=== PATIENT | male | born 1945 | race Caucasian/White ===

== ENCOUNTER 2021-06-22 10:55 | Emergency (ER) | payer OTHER, MEDICARE ==
[~2021-06-22] VITALS: Ht 175.3 cm; Wt 80.9 kg
[2021-06-22] MEDS ORDERED: CASIRIVIMAB/IMDEVIMAB inject. 10 ML in normal saline 100ml IV soln 100 ML IV ONE (13:00)
[2021-06-22 15:23] VITALS: BP 154/78
== END 2021-06-22 15:25 | disposition home or self-care (01) ==
LOC: ER 10:56
DX: U07.1 COVID-19 (principal); R50.9 Fever, unspecified; R11.0 Nausea; I10 Essential (primary) hypertension; J44.9 Chronic obstructive pulmonary disease, unspecified; E11.9 Type 2 diabetes mellitus without complications; F17.200 Nicotine dependence, unspecified, uncomplicated
CPT/HCPCS: 99283; M0243; Q0244

== ENCOUNTER 2021-06-25 09:23 | Inpatient (IN) | payer OTHER, MEDICARE ==
[~2021-06-25] VITALS: Ht 175.3 cm; Wt 81.0 kg
[2021-06-25 10:22] LABS: BASOPHILS % (AUTO) 0.1 % (0-1); EOSINOPHILS % (AUTO) 0.1 % (0-6); HEMATOCRIT 45.6 % (42.0-52.0); HEMOGLOBIN 15.2 g/dl (14.0-17.9); LYMPHOCYTES # (AUTO) 0.9 X10'3 (1.1-4.8); LYMPHOCYTES % (AUTO) 16.1 % (21-51); MEAN CORPUSCULAR HEMOGLOBIN 29.9 PG (27.0-31.0); MEAN CORPUSCULAR HGB CONC 33.4 g/dL (33.0-36.5); MEAN CORPUSCULAR VOLUME 89.5 FL (78-98); MEAN PLATELET VOLUME 8.6 FL (7.4-10.4); MONOCYTES # (AUTO) 0.4 X10'3 (0-0.9); MONOCYTES % (AUTO) 7.5 % (2-12); NEUTROPHILS # (AUTO) 4.1 X10'3 (1.8-7.7); NEUTROPHILS % (AUTO) 76.2 % (42-75); PLATELET COUNT 214 X10'3 (140-440); RED BLOOD COUNT 5.09 X10'6 (4.70-6.10); WHITE BLOOD COUNT 5.3 X10'3 (4.5-11.0)
[2021-06-25 10:38] LABS: ALANINE AMINOTRANSFERASE 47 U/L (12-78); ALBUMIN/GLOBULIN RATIO 0.8 (1.1-1.5); ALKALINE PHOSPHATASE 91 IU/L (46-116); ANION GAP 6 (8-16); ASPARTATE AMINO TRANSFERASE 44 U/L (10-37); BILIRUBIN,TOTAL 0.8 MG/DL (0.1-1.0); BLOOD UREA NITROGEN 19 MG/DL (7-18); BUN/CREATININE RATIO 15.7 (5.4-32.0); CALCIUM 8.2 MG/DL (8.5-10.1); CHLORIDE 100 MMOL/L (99-107); CREATININE 1.21 MG/DL (0.60-1.10); GLUCOSE 124 MG/DL (70-104); POTASSIUM 3.7 MMOL/L (3.5-5.1); SODIUM 129 MMOL/L (135-145); TOTAL CARBON DIOXIDE 23.5 MMOL/L (24-32); TOTAL PROTEIN 6.8 G/DL (6.4-8.2); eGFR 59 ML/MIN
[2021-06-25] MEDS ORDERED: dexamethasone sod phosphate 10mg/ml inj IV STA (10:43)
[2021-06-25] MEDS ORDERED: acetaminophen 325mg tablet PO PRN (10:55)
[2021-06-25] MEDS ORDERED: mag hydrox/Alum hydrox/simeth 30ml oral suspension PO PRN (10:55)
[2021-06-25] MEDS ORDERED: magnesium hydroxide 30ml (MOM) UD suspension PO PRN (10:55)
[2021-06-25] MEDS ORDERED: ondansetron/PF 4mg/2ml inj IV PRN (10:55)
[2021-06-25 11:03] LABS: D-DIMER 0.42 MG/L FEU (0-0.50)
[2021-06-25] MEDS: normal saline 1000ml 1,000 ML IV SCH (11:47)
[2021-06-25] MEDS ORDERED: iohexol 350MG/ML 100ml bottle IV ONE (11:59)
[2021-06-25] MEDS ORDERED: LISI10TA27 PO (13:31)
[2021-06-25] MEDS ORDERED: ALBU8.5H17 INH (13:31)
[2021-06-25] MEDS ORDERED: LOVA40TA2 PO (13:31)
[2021-06-25] MEDS ORDERED: MOME13HF3 IH (13:31)
[2021-06-25] MEDS ORDERED: CHOL200012 PO (13:31)
[2021-06-25] MEDS ORDERED: TIOT4MIS3 IH (13:31)
[2021-06-25] MEDS ORDERED: ALBUTEROL INHALER 1 PUFF/90 MCG INHALER IH PRN (13:40)
[2021-06-25] MEDS ORDERED: ipratropium/albuterol 3ml nebule IH PRN (14:00)
[2021-06-25 18:00] VITALS: BP 147/78
--- NOTE | 2021-06-25 19:00 | NUR ---
Pt came up from ER on 5L O2 sats 88-92%.
[2021-06-25] MEDS ORDERED: budesonide 0.5mg/2ml UD nebule IH SCH (20:00)
[2021-06-25] MEDS: docusate sod 100mg capsule PO SCH (20:00)
[2021-06-25 22:00] VITALS: BP 125/77
[2021-06-25] MEDS: dexamethasone 4mg/ml inj IV SCH (22:50)
[2021-06-25] MEDS: enoxaparin 40mg/0.4ml syringe SUBCUT SCH (22:52)
--- NOTE | 2021-06-25 23:36 | NUR ---
Pt states he is going to have a CT scan of his thyroid on 07/01 and follow up with his PCP. Has been gaining wt and has trouble breathing at times after having a cyst removal surgery in the neck.
[2021-06-26 02:00] VITALS: BP 125/75
[2021-06-26 06:00] VITALS: BP 145/81
--- NOTE | 2021-06-26 06:10 | NUR ---
RECEIVED REPORT FROM DELANEY SOLORZANO
[2021-06-26] MEDS: lisinopril 10 MG tablet PO SCH (07:30)
[2021-06-26] MEDS: dexamethasone 4mg/ml inj IV SCH ×2 (07:33→20:55)
[2021-06-26] MEDS: enoxaparin 40mg/0.4ml syringe SUBCUT SCH ×2 (07:36→20:54)
[2021-06-26] MEDS: docusate sod 100mg capsule PO SCH ×2 (07:40→20:00)
[2021-06-26] MEDS: normal saline 1000ml 1,000 ML IV SCH ×3 (07:41→21:00)
[2021-06-26] MEDS: atorvastatin 10mg tablet PO SCH (07:43)
[2021-06-26] MEDS: cholecalciferol (vitamin D3) 1,000 unit (25mcg) tablet PO SCH (07:44)
[2021-06-26 08:14] LABS: BASOPHILS % (AUTO) 0.2 % (0-1); EOSINOPHILS % (AUTO) 0 % (0-6); HEMATOCRIT 45.1 % (42.0-52.0); HEMOGLOBIN 14.9 g/dl (14.0-17.9); LYMPHOCYTES # (AUTO) 0.8 X10'3 (1.1-4.8); LYMPHOCYTES % (AUTO) 16.6 % (21-51); MEAN CORPUSCULAR HGB CONC 33.1 g/dL (33.0-36.5); MEAN CORPUSCULAR VOLUME 90.6 FL (78-98); MEAN PLATELET VOLUME 8.8 FL (7.4-10.4); MONOCYTES # (AUTO) 0.2 X10'3 (0-0.9); MONOCYTES % (AUTO) 4.8 % (2-12); NEUTROPHILS # (AUTO) 3.6 X10'3 (1.8-7.7); NEUTROPHILS % (AUTO) 78.4 % (42-75); PLATELET COUNT 246 X10'3 (140-440); RED BLOOD COUNT 4.98 X10'6 (4.70-6.10); WHITE BLOOD COUNT 4.6 X10'3 (4.5-11.0)
[2021-06-26 08:37] LABS: ALBUMIN 2.6 G/DL (3.4-5.0); ANION GAP 12 (8-16); BLOOD UREA NITROGEN 21 MG/DL (7-18); BUN/CREATININE RATIO 17.9 (5.4-32.0); CHLORIDE 107 MMOL/L (99-107); CREATININE 1.17 MG/DL (0.60-1.10); GLUCOSE 173 MG/DL (70-104); POTASSIUM 3.9 MMOL/L (3.5-5.1); SODIUM 142 MMOL/L (135-145); TOTAL CARBON DIOXIDE 23.3 MMOL/L (24-32); eGFR 61 ML/MIN
[2021-06-26] MEDS ORDERED: REMDESIVIR INJ 200 MG in normal saline 100ml IV soln 60 ML IV ONE (08:40)
[2021-06-26 10:00] VITALS: BP 154/79
[2021-06-26] MEDS ORDERED: pneumococcal 23-VAL P-sac vacc 25 mcg/0.5ml vial IMVAC ONE (10:00)
[2021-06-26] MEDS: STIOLTO RESPIMAT IH SCH (12:54)
[2021-06-26 14:00] VITALS: BP 134/66
[2021-06-26 17:32] LABS: HEMOGLOBIN A1C 7.2 % (4.5-6.2)
[2021-06-26 18:00] VITALS: BP 154/79
--- NOTE | 2021-06-26 18:09 | NUR ---
GAVE REPORT TO BO Arizmendi RN
[2021-06-26] MEDS: MOMETASONE IH SCH (20:53)
[2021-06-26 22:00] VITALS: BP 142/74
[2021-06-27 06:30] VITALS: BP 153/83
--- NOTE | 2021-06-27 06:39 | NUR ---
Problems reprioritized. Patient report given, questions answered & plan of care reviewed with DELANEY Steven.
--- NOTE | 2021-06-27 06:45 | NUR ---
Patient in room [facility] 4012. I have received report from edgardo holden and had the opportunity to ask questions and assume patient care.
[2021-06-27] MEDS: docusate sod 100mg capsule PO SCH ×2 (08:00→20:00)
[2021-06-27] MEDS ORDERED: STIOLTO RESPIMAT IH SCH (08:00)
[2021-06-27] MEDS: dexamethasone 4mg/ml inj IV SCH ×2 (08:15→21:50)
[2021-06-27] MEDS: enoxaparin 40mg/0.4ml syringe SUBCUT SCH ×2 (08:16→21:51)
[2021-06-27] MEDS: REMDESIVIR INJ 100 MG in normal saline 100ml IV soln 80 ML IV SCH (08:16)
[2021-06-27] MEDS: cholecalciferol (vitamin D3) 1,000 unit (25mcg) tablet PO SCH (08:16)
[2021-06-27] MEDS: lisinopril 10 MG tablet PO SCH (08:16)
[2021-06-27] MEDS: atorvastatin 10mg tablet PO SCH (08:18)
[2021-06-27] MEDS: MOMETASONE IH SCH ×2 (08:27→20:00)
[2021-06-27] MEDS: STIOLTO RESPIMAT IH SCH (08:28)
[2021-06-27 08:59] LABS: ALBUMIN 2.7 G/DL (3.4-5.0); ANION GAP 13 (8-16); BLOOD UREA NITROGEN 30 MG/DL (7-18); BUN/CREATININE RATIO 24.2 (5.4-32.0); CALCIUM 8.4 MG/DL (8.5-10.1); CHLORIDE 110 MMOL/L (99-107); CREATININE 1.24 MG/DL (0.60-1.10); GLUCOSE 189 MG/DL (70-104); POTASSIUM 4.1 MMOL/L (3.5-5.1); SODIUM 144 MMOL/L (135-145); TOTAL CARBON DIOXIDE 20.7 MMOL/L (24-32); eGFR 57 ML/MIN
[2021-06-27 09:03] LABS: BASOPHILS % (AUTO) 0 % (0-1); EOSINOPHILS % (AUTO) 0 % (0-6); HEMATOCRIT 45.8 % (42.0-52.0); LYMPHOCYTES # (AUTO) 0.9 X10'3 (1.1-4.8); LYMPHOCYTES % (AUTO) 9.3 % (21-51); MEAN CORPUSCULAR HEMOGLOBIN 29.9 PG (27.0-31.0); MEAN CORPUSCULAR HGB CONC 32.7 g/dL (33.0-36.5); MEAN CORPUSCULAR VOLUME 91.4 FL (78-98); MEAN PLATELET VOLUME 8.6 FL (7.4-10.4); MONOCYTES # (AUTO) 0.4 X10'3 (0-0.9); MONOCYTES % (AUTO) 4.2 % (2-12); NEUTROPHILS # (AUTO) 7.9 X10'3 (1.8-7.7); NEUTROPHILS % (AUTO) 86.5 % (42-75); PLATELET COUNT 319 X10'3 (140-440); RED BLOOD COUNT 5.01 X10'6 (4.70-6.10); WHITE BLOOD COUNT 9.1 X10'3 (4.5-11.0)
--- NOTE | 2021-06-27 09:19 | NUR ---
DM Consult: Pt hx T2DM A1C 7.2 admit DX COVID-19 PNA. DM ed deferred at this time until more appropriate. Addendum: 06/27/21 at [address] Amended: Links added.
[2021-06-27 10:42] VITALS: BP 168/89
[2021-06-27] MEDS ORDERED: dextrose 50%-water 50ml dispensing syringe IV PRN ×2 (11:05)
[2021-06-27] MEDS ORDERED: MESSAGE TO PHARMACY PO ONE (11:05)
[2021-06-27] MEDS ORDERED: insulin Lispro (HumaLOG) vial - multi-dose SQ SCH (11:05)
[2021-06-27] MEDS ORDERED: glucagon, human recombinant 1mg kit SUBCUT PRN (11:05)
[2021-06-27] MEDS ORDERED: dextrose ORAL solution 15 GM/59 ML bottle PO PRN ×2 (11:05)
--- NOTE | 2021-06-27 13:28 | NUR ---
PT REFUSING INSULIN, EDUCATED PT ON RISKS AND BENEFITS. PT STATES "NO INSULIN, AND YOU CANT MAKE ME TAKE IT"
[2021-06-27 14:53] VITALS: BP 171/87
[2021-06-27] MEDS: ascorbic acid 500mg tablet PO SCH (17:36)
[2021-06-27 18:00] VITALS: BP 174/88
--- NOTE | 2021-06-27 18:13 | NUR ---
PAGED DR BENITEZ RE: PAGER ID: [phone] MESSAGE: OZ RIOS. PT REFUSING INSULIN. BP ELEVATED 174/88. O/N CONNER [id number]
[2021-06-27] MEDS ORDERED: hydrALAZINE 20mg/ml inj. IV PRN (18:15)
--- NOTE | 2021-06-27 18:22 | NUR ---
Problems reprioritized. Patient report given, questions answered & plan of care reviewed with BO BALTAZAR.
--- NOTE | 2021-06-27 19:30 | NUR ---
Patient in room [facility] 4012. I have received report from Noelle BALTAZAR and had the opportunity to ask questions and assume patient care.
[2021-06-27] MEDS: insulin glargine (Lantus) pen - multi-dose SQ SCH (21:00)
--- NOTE | 2021-06-27 21:00 | NUR ---
pt refused to have 2100 blood sugar check and is refusing any insulin. He states he will check his sugar in am. He takes metformin at home and does not want insulin
[2021-06-27] MEDS: zinc sulfate 220mg capsule PO SCH (21:51)
[2021-06-27 22:00] VITALS: BP 180/88
--- NOTE | 2021-06-28 06:25 | NUR ---
Problems reprioritized. Patient report given, questions answered & plan of care reviewed with Tenisha BALTAZAR.
--- NOTE | 2021-06-28 06:40 | NUR ---
Patient in room [facility] 4012. I have received report from karrie holden and had the opportunity to ask questions and assume patient care.
[2021-06-28 06:56] VITALS: BP 170/83
[2021-06-28] MEDS: STIOLTO RESPIMAT IH SCH (07:19)
[2021-06-28] MEDS: MOMETASONE IH SCH ×2 (07:19→19:59)
[2021-06-28] MEDS: cholecalciferol (vitamin D3) 1,000 unit (25mcg) tablet PO SCH (07:21)
[2021-06-28] MEDS: lisinopril 10 MG tablet PO SCH (07:22)
[2021-06-28] MEDS: dexamethasone 4mg/ml inj IV SCH ×2 (07:23→19:50)
[2021-06-28] MEDS: REMDESIVIR INJ 100 MG in normal saline 100ml IV soln 80 ML IV SCH (07:23)
[2021-06-28] MEDS: enoxaparin 40mg/0.4ml syringe SUBCUT SCH ×2 (07:24→19:50)
[2021-06-28] MEDS: zinc sulfate 220mg capsule PO SCH ×2 (07:27→20:10)
[2021-06-28] MEDS: ascorbic acid 500mg tablet PO SCH ×2 (07:28→17:36)
[2021-06-28] MEDS: atorvastatin 10mg tablet PO SCH (07:39)
[2021-06-28] MEDS: docusate sod 100mg capsule PO SCH ×2 (07:39→19:50)
[2021-06-28 07:42] LABS: BASOPHILS % (AUTO) 0.1 % (0-1); EOSINOPHILS % (AUTO) 0 % (0-6); HEMATOCRIT 43.8 % (42.0-52.0); HEMOGLOBIN 14.6 g/dl (14.0-17.9); LYMPHOCYTES # (AUTO) 0.8 X10'3 (1.1-4.8); LYMPHOCYTES % (AUTO) 8.8 % (21-51); MEAN CORPUSCULAR HEMOGLOBIN 30.4 PG (27.0-31.0); MEAN CORPUSCULAR HGB CONC 33.4 g/dL (33.0-36.5); MEAN CORPUSCULAR VOLUME 91.1 FL (78-98); MEAN PLATELET VOLUME 8.3 FL (7.4-10.4); MONOCYTES # (AUTO) 0.4 X10'3 (0-0.9); MONOCYTES % (AUTO) 5.1 % (2-12); NEUTROPHILS # (AUTO) 7.4 X10'3 (1.8-7.7); PLATELET COUNT 346 X10'3 (140-440); RED BLOOD COUNT 4.81 X10'6 (4.70-6.10); RED CELL DISTRIBUTION WIDTH 15.4 % (11.5-14.5); WHITE BLOOD COUNT 8.6 X10'3 (4.5-11.0)
[2021-06-28 07:55] LABS: ALBUMIN 2.8 G/DL (3.4-5.0); ANION GAP 10 (8-16); BLOOD UREA NITROGEN 30 MG/DL (7-18); BUN/CREATININE RATIO 26.5 (5.4-32.0); CALCIUM 8.6 MG/DL (8.5-10.1); CHLORIDE 108 MMOL/L (99-107); CREATININE 1.13 MG/DL (0.60-1.10); GLUCOSE 175 MG/DL (70-104); POTASSIUM 4.1 MMOL/L (3.5-5.1); SODIUM 141 MMOL/L (135-145); TOTAL CARBON DIOXIDE 22.7 MMOL/L (24-32); eGFR 64 ML/MIN
[2021-06-28 10:00] VITALS: BP 172/95
[2021-06-28 14:00] VITALS: BP 152/74
[2021-06-28 14:08] LABS: D-DIMER 0.39 MG/L FEU (0-0.50)
[2021-06-28 18:00] VITALS: BP 164/99
--- NOTE | 2021-06-28 18:19 | NUR ---
Patient in room [facility] 4012. I have received report from DELANEY Steven and had the opportunity to ask questions and assume patient care.
--- NOTE | 2021-06-28 18:33 | NUR ---
Problems reprioritized. Patient report given, questions answered & plan of care reviewed with ARACELIS BALTAZAR.
[2021-06-28] MEDS: insulin glargine (Lantus) pen - multi-dose SQ SCH (21:00)
[2021-06-28 22:00] VITALS: BP 180/90
[2021-06-28 22:21] VITALS: BP 141/75
[2021-06-29 02:00] VITALS: BP 155/87
[2021-06-29 06:00] VITALS: BP 152/74
--- NOTE | 2021-06-29 06:30 | NUR ---
Problems reprioritized. Patient report given, questions answered & plan of care reviewed with DELANEY Harrison.
[2021-06-29] MEDS: ascorbic acid 500mg tablet PO SCH ×2 (07:50→18:16)
[2021-06-29] MEDS: docusate sod 100mg capsule PO SCH ×2 (07:50→19:02)
[2021-06-29] MEDS: lisinopril 10 MG tablet PO SCH (07:50)
[2021-06-29] MEDS: cholecalciferol (vitamin D3) 1,000 unit (25mcg) tablet PO SCH (07:50)
[2021-06-29] MEDS: atorvastatin 10mg tablet PO SCH (07:50)
[2021-06-29] MEDS: dexamethasone 4mg/ml inj IV SCH ×2 (07:52→19:13)
[2021-06-29] MEDS: enoxaparin 40mg/0.4ml syringe SUBCUT SCH ×2 (07:53→19:14)
[2021-06-29] MEDS: MOMETASONE IH SCH ×2 (08:00→19:12)
[2021-06-29] MEDS: STIOLTO RESPIMAT IH SCH (08:00)
[2021-06-29] MEDS: REMDESIVIR INJ 100 MG in normal saline 100ml IV soln 80 ML IV SCH (08:13)
[2021-06-29] MEDS: zinc sulfate 220mg capsule PO SCH ×2 (08:13→19:13)
[2021-06-29 08:20] LABS: BASOPHILS % (AUTO) 0 % (0-1); EOSINOPHILS % (AUTO) 0 % (0-6); HEMATOCRIT 44.8 % (42.0-52.0); HEMOGLOBIN 15.1 g/dl (14.0-17.9); LYMPHOCYTES # (AUTO) 0.8 X10'3 (1.1-4.8); MEAN CORPUSCULAR HEMOGLOBIN 30.4 PG (27.0-31.0); MEAN CORPUSCULAR HGB CONC 33.7 g/dL (33.0-36.5); MEAN CORPUSCULAR VOLUME 90.1 FL (78-98); MONOCYTES # (AUTO) 0.6 X10'3 (0-0.9); MONOCYTES % (AUTO) 7.7 % (2-12); NEUTROPHILS # (AUTO) 6.5 X10'3 (1.8-7.7); NEUTROPHILS % (AUTO) 82.3 % (42-75); PLATELET COUNT 385 X10'3 (140-440); RED BLOOD COUNT 4.97 X10'6 (4.70-6.10); RED CELL DISTRIBUTION WIDTH 15.1 % (11.5-14.5); WHITE BLOOD COUNT 7.9 X10'3 (4.5-11.0)
[2021-06-29 08:36] LABS: D-DIMER 0.48 MG/L FEU (0-0.50)
[2021-06-29 08:49] LABS: ALBUMIN 2.9 G/DL (3.4-5.0); ANION GAP 9 (8-16); BLOOD UREA NITROGEN 30 MG/DL (7-18); BUN/CREATININE RATIO 29.7 (5.4-32.0); C-REACTIVE PROTEIN 1.35 MG/DL (0.0-0.5); CALCIUM 8.8 MG/DL (8.5-10.1); CHLORIDE 107 MMOL/L (99-107); CREATININE 1.01 MG/DL (0.60-1.10); GLUCOSE 158 MG/DL (70-104); POTASSIUM 4.3 MMOL/L (3.5-5.1); SODIUM 139 MMOL/L (135-145); eGFR 72 ML/MIN
[2021-06-29 10:00] VITALS: BP 145/82
--- NOTE | 2021-06-29 10:15 | NUR ---
Blood sugar was 170mg/dl at 0800, patient refused insulin.
[2021-06-29 14:00] VITALS: BP 154/87
[2021-06-29 18:00] VITALS: BP 171/93
--- NOTE | 2021-06-29 19:39 | NUR ---
pt got oob on his own to use the bathroom and he was not wearing his oxygen even though there is extension tubing hooked up to his oxygen. I educated him on needing to wear his oxygen and he disregarded my instructions, I applied the NRB to help him recover since his oxygen saturation was 86% on the 15 liters HF after getting back to bed. Applied the bedside pulse ox on his finger at this time.
[2021-06-29] MEDS: insulin glargine (Lantus) pen - multi-dose SQ SCH (21:00)
[2021-06-29 22:00] VITALS: BP 163/89
[2021-06-30 06:00] VITALS: BP 138/90
--- NOTE | 2021-06-30 06:14 | NUR ---
Pt handoff to Deborah BALTAZAR
--- NOTE | 2021-06-30 06:42 | NUR ---
Patient in room [facility]TH[facility] 4012B. I have received report from DELANEY Rhoaeds and had the opportunity to ask questions and assume patient care.
[2021-06-30] MEDS: dexamethasone 4mg/ml inj IV SCH ×2 (07:31→19:45)
[2021-06-30] MEDS: docusate sod 100mg capsule PO SCH ×2 (07:31→19:52)
[2021-06-30] MEDS: REMDESIVIR INJ 100 MG in normal saline 100ml IV soln 80 ML IV SCH (07:31)
[2021-06-30] MEDS: atorvastatin 10mg tablet PO SCH (07:31)
[2021-06-30] MEDS: zinc sulfate 220mg capsule PO SCH ×2 (07:32→19:45)
[2021-06-30] MEDS: cholecalciferol (vitamin D3) 1,000 unit (25mcg) tablet PO SCH (07:32)
[2021-06-30] MEDS: enoxaparin 40mg/0.4ml syringe SUBCUT SCH ×2 (07:33→19:46)
[2021-06-30] MEDS: lisinopril 10 MG tablet PO SCH (07:33)
[2021-06-30] MEDS: ascorbic acid 500mg tablet PO SCH ×2 (07:36→18:00)
[2021-06-30 07:42] LABS: BASOPHILS % (AUTO) 0.1 % (0-1); EOSINOPHILS % (AUTO) 0 % (0-6); HEMATOCRIT 44.5 % (42.0-52.0); HEMOGLOBIN 15.2 g/dl (14.0-17.9); LYMPHOCYTES # (AUTO) 0.9 X10'3 (1.1-4.8); MEAN CORPUSCULAR HEMOGLOBIN 30.4 PG (27.0-31.0); MEAN CORPUSCULAR HGB CONC 34.2 g/dL (33.0-36.5); MEAN CORPUSCULAR VOLUME 88.7 FL (78-98); MEAN PLATELET VOLUME 8.1 FL (7.4-10.4); MONOCYTES # (AUTO) 0.5 X10'3 (0-0.9); MONOCYTES % (AUTO) 6.9 % (2-12); NEUTROPHILS # (AUTO) 6.4 X10'3 (1.8-7.7); PLATELET COUNT 410 X10'3 (140-440); RED BLOOD COUNT 5.01 X10'6 (4.70-6.10); RED CELL DISTRIBUTION WIDTH 15.2 % (11.5-14.5); WHITE BLOOD COUNT 7.9 X10'3 (4.5-11.0)
[2021-06-30] MEDS: MOMETASONE IH SCH ×2 (07:48→19:43)
[2021-06-30] MEDS: STIOLTO RESPIMAT IH SCH (07:48)
[2021-06-30 08:00] LABS: ALBUMIN 2.8 G/DL (3.4-5.0); ANION GAP 11 (8-16); BLOOD UREA NITROGEN 28 MG/DL (7-18); BUN/CREATININE RATIO 28.9 (5.4-32.0); C-REACTIVE PROTEIN 0.86 MG/DL (0.0-0.5); CALCIUM 8.6 MG/DL (8.5-10.1); CHLORIDE 107 MMOL/L (99-107); CREATININE 0.97 MG/DL (0.60-1.10); GLUCOSE 154 MG/DL (70-104); POTASSIUM 4.3 MMOL/L (3.5-5.1); SODIUM 142 MMOL/L (135-145); TOTAL CARBON DIOXIDE 24.5 MMOL/L (24-32); eGFR 76 ML/MIN
[2021-06-30 08:02] LABS: D-DIMER 0.41 MG/L FEU (0-0.50)
--- NOTE | 2021-06-30 09:12 | NUR ---
Initial: Pt admitted w/ SOB and Covid per EMR. Pt noted to currently have 14L oxygen requirement. Pt still able to eat well, mostly 75-100% of CCHO/Heart Healthy diet meeting needs. No N/V/D noted, LBM 06/29. No nutrition intervention implemented at this time, will continue to monitor. DM ed deferred at this time until more appropriate. Recs: 1. Continue CCHO/Heart Healthy diet as tolerated; if PO intake declines consider liberalizing diet 2. Bowel care per rx 3. Scaled wt this admit, weekly wts thereafter Addendum: 06/30/21 at [address] Amended: Links added.
[2021-06-30 10:00] VITALS: BP 163/82
--- NOTE | 2021-06-30 18:08 | NUR ---
Problems reprioritized. Patient report given, questions answered & plan of care reviewed with DELANEY BAIRD.
[2021-06-30] MEDS: insulin glargine (Lantus) pen - multi-dose SQ SCH (19:43)
[2021-06-30 21:00] VITALS: BP 139/70
[2021-07-01 02:00] VITALS: BP 140/81
[2021-07-01 06:00] VITALS: BP 142/74
--- NOTE | 2021-07-01 06:10 | NUR ---
Handoff report given to Deborah BALTAZAR
--- NOTE | 2021-07-01 06:36 | NUR ---
Patient in room [facility]TH[facility] 4012B. I have received report from DELANEY Rhoades and had the opportunity to ask questions and assume patient care.
[2021-07-01 08:40] LABS: D-DIMER 0.37 MG/L FEU (0-0.50)
[2021-07-01] MEDS: dexamethasone 4mg/ml inj IV SCH (09:35)
[2021-07-01] MEDS: atorvastatin 10mg tablet PO SCH (09:35)
[2021-07-01] MEDS: cholecalciferol (vitamin D3) 1,000 unit (25mcg) tablet PO SCH (09:36)
[2021-07-01] MEDS: zinc sulfate 220mg capsule PO SCH (09:37)
[2021-07-01] MEDS: ascorbic acid 500mg tablet PO SCH ×2 (09:37→17:51)
[2021-07-01] MEDS: lisinopril 10 MG tablet PO SCH (09:37)
[2021-07-01] MEDS: enoxaparin 40mg/0.4ml syringe SUBCUT SCH (09:41)
[2021-07-01] MEDS: docusate sod 100mg capsule PO SCH (09:42)
[2021-07-01] MEDS: STIOLTO RESPIMAT IH SCH (09:42)
[2021-07-01] MEDS: MOMETASONE IH SCH (09:42)
[2021-07-01 10:00] VITALS: BP 125/77
[2021-07-01] MEDS ORDERED: ASPI81TA52 PO (12:00)
[2021-07-01] MEDS ORDERED: DEC4T PO (12:00)
--- NOTE | 2021-07-01 13:20 | NUR ---
O2 Sat at rest on room air:_85__% If below 89%: Recovery O2 Sat at rest on _4__LPM:__93_%: via___nasal canula__(mask/nasal cannula, etc..) No further documentation is necessary. If O2 Sat did not drop below 89% on room air,ambulate patient on room air. O2 Sat while ambulating on room air:___% Recovery O2 Sat while ambulating on ___LPM:___% No further documentation is necessary. If patient does not drop below 89% while ambulating, he/she does not qualify for home O2.
[2021-07-01 14:00] VITALS: BP 132/77
--- NOTE | 2021-07-01 18:13 | NUR ---
DC INSTRUCTIONS GIVEN, QUESTIONS ANSWERED. O2 HERE AT BEDSIDE. IV REMOVED, NO COMPLICATION, BANDAGE APPLIED. PERSONAL BELONGINGS GATHERED. PT DRESSED SELF. RIDE TO BE HERE AT 1900. WILL HAND OFF TO MARY RN.
--- NOTE | 2021-07-01 18:39 | NUR ---
Problems reprioritized. Patient report given, questions answered & plan of care reviewed with DELANEY BAIRD.
[2021-07-01] MEDS ORDERED: dexamethasone 4mg/ml inj IV SCH (20:00)
== END 2021-07-01 18:40 | disposition home or self-care (01) | DRG 177 ==
LOC: ER 09:23 → ED HOLD 10:58 → ORTHO 4S 19:00
PROVIDERS: ADMIT Family Medicine; ATTEND Family Medicine
PROC: B32T1ZZ Computerized Tomography (CT Scan) of Left Pulmonary Artery using Low Osmolar Contrast (ICD-10-PCS; 2021-06-25)
PROC: B3201ZZ Computerized Tomography (CT Scan) of Thoracic Aorta using Low Osmolar Contrast (ICD-10-PCS; 2021-06-25)
PROC: B32S1ZZ Computerized Tomography (CT Scan) of Right Pulmonary Artery using Low Osmolar Contrast (ICD-10-PCS; 2021-06-25)
PROC: XW033E5 Introduction of Remdesivir Anti-infective into Peripheral Vein, Percutaneous Approach, New Technology Group 5 (ICD-10-PCS; principal; 2021-06-26)
PROC: 5A0955A Assistance with Respiratory Ventilation, Greater than 96 Consecutive Hours, High Flow/Velocity Cannula (ICD-10-PCS; 2021-06-26)
DX: U07.1 COVID-19 (principal); J96.01 Acute respiratory failure with hypoxia; J12.82 Pneumonia due to coronavirus disease 2019; N17.0 Acute kidney failure with tubular necrosis; J44.0 Chronic obstructive pulmonary disease with (acute) lower respiratory infection; E87.1 Hypo-osmolality and hyponatremia; R04.2 Hemoptysis; E11.9 Type 2 diabetes mellitus without complications; E78.5 Hyperlipidemia, unspecified; I10 Essential (primary) hypertension; Z87.891 Personal history of nicotine dependence
CPT/HCPCS: 36415; 71045; 71275; 80048; 80053; 82948; 83036; 83880; 84484; 85025; 85379; 86140; 87081; 93005; 94760; 97110; 97116; 97161; 97530; 99285; G0378; J1100; J1650; J1815; J7030; Q9967

== ENCOUNTER 2021-10-19 13:39 | Emergency (ER) | payer OTHER, MEDICARE ==
[~2021-10-19] VITALS: Ht 175.3 cm; Wt 82.3 kg
[~2021-10-19 13:39] MED LIST: ALBU8.5H17 INH; CHOL200012 PO; LISI10TA27 PO; LOVA40TA2 PO; MOME13HF3 IH; TIOT4MIS3 IH
[2021-10-19 14:03] VITALS: BP 156/75
[2021-10-19] MEDS ORDERED: LIDOcaine 1% W/epiNEPHrine 1:200,000 10ml vial IJ ONE (16:00)
[2021-10-19] MEDS ORDERED: LIDOcaine 1% W/epiNEPHrine 1:100,000 20ml vial IJ ONE (16:05)
[2021-10-19] MEDS ORDERED: CEPH-585 PO (16:28)
== END 2021-10-20 01:36 | disposition home or self-care (01) ==
LOC: ER 13:40
DX: S51.812A Laceration without foreign body of left forearm, initial encounter (principal); I10 Essential (primary) hypertension; E11.9 Type 2 diabetes mellitus without complications; J44.9 Chronic obstructive pulmonary disease, unspecified; Z79.2 Long term (current) use of antibiotics; Z79.899 Other long term (current) drug therapy; W29.3XXA Contact with powered garden and outdoor hand tools and machinery, initial encounter; Y93.89 Activity, other specified; Y92.89 Other specified places as the place of occurrence of the external cause; Y99.8 Other external cause status
CPT/HCPCS: 12004; 99283

== ENCOUNTER 2021-10-26 07:17 | Emergency (ER) | payer OTHER, MEDICARE ==
[~2021-10-26] VITALS: Ht 175.3 cm; Wt 78.2 kg
[~2021-10-26 07:17] MED LIST changes: +CEPH-585 PO
[2021-10-26 07:28] VITALS: BP 152/73
== END 2021-10-26 09:25 | disposition home or self-care (01) ==
LOC: ER 07:18
DX: S51.812D Laceration without foreign body of left forearm, subsequent encounter (principal); Z48.02 Encounter for removal of sutures; I10 Essential (primary) hypertension; J44.9 Chronic obstructive pulmonary disease, unspecified; E11.9 Type 2 diabetes mellitus without complications; Z79.2 Long term (current) use of antibiotics; Z79.899 Other long term (current) drug therapy; X58.XXXD Exposure to other specified factors, subsequent encounter
CPT/HCPCS: 99281

== ENCOUNTER 2021-11-03 05:34 | Inpatient (IN) | payer OTHER, MEDICARE ==
[2021-11-03] VITALS (17 sets, daily range): BP systolic 141–180; BP diastolic 72–108
[~2021-11-03] VITALS: Ht 175.3 cm; Wt 66.8 kg
[2021-11-03] MEDS ORDERED: sevoflurane 250ml liquid IH ONE (06:00)
[2021-11-03] MEDS ORDERED: ondansetron/PF 4mg/2ml inj IV ONE (06:35)
[2021-11-03] MEDS ORDERED: morphine 4 MG/ML inj SYRINge IV ONE (06:35)
[2021-11-03] MEDS ORDERED: iohexol 300mg/ml 100ml inj. ONE (07:26)
[2021-11-03 07:32] LABS: BASOPHILS % (AUTO) 0.1 % (0-1); EOSINOPHILS % (AUTO) 0.2 % (0-6); HEMATOCRIT 46.9 % (42.0-52.0); HEMOGLOBIN 15.9 g/dl (14.0-17.9); LYMPHOCYTES # (AUTO) 1.5 X10'3 (1.1-4.8); LYMPHOCYTES % (AUTO) 15.2 % (21-51); MEAN CORPUSCULAR HGB CONC 33.9 g/dL (33.0-36.5); MEAN CORPUSCULAR VOLUME 88.6 FL (78-98); MEAN PLATELET VOLUME 8.6 FL (7.4-10.4); MONOCYTES # (AUTO) 0.5 X10'3 (0-0.9); MONOCYTES % (AUTO) 5.6 % (2-12); NEUTROPHILS # (AUTO) 7.6 X10'3 (1.8-7.7); NEUTROPHILS % (AUTO) 78.9 % (42-75); PLATELET COUNT 247 X10'3 (140-440); RED BLOOD COUNT 5.29 X10'6 (4.70-6.10); WHITE BLOOD COUNT 9.7 X10'3 (4.5-11.0)
[2021-11-03 07:44] LABS: ALANINE AMINOTRANSFERASE 39 U/L (12-78); ALBUMIN 3.9 G/DL (3.4-5.0); ALBUMIN/GLOBULIN RATIO 1.1 (1.1-1.5); ALKALINE PHOSPHATASE 93 IU/L (46-116); ANION GAP 7 (8-16); ASPARTATE AMINO TRANSFERASE 20 U/L (10-37); BILIRUBIN,TOTAL 0.7 MG/DL (0.1-1.0); BLOOD UREA NITROGEN 13 MG/DL (7-18); BUN/CREATININE RATIO 11.7 (5.4-32.0); CALCIUM 8.6 MG/DL (8.5-10.1); CHLORIDE 105 MMOL/L (99-107); CREATININE 1.11 MG/DL (0.60-1.10); GLUCOSE 143 MG/DL (70-104); LIPASE 59 U/L (73-393); POTASSIUM 3.9 MMOL/L (3.5-5.1); SODIUM 140 MMOL/L (135-145); TOTAL CARBON DIOXIDE 28.1 MMOL/L (24-32); TOTAL PROTEIN 7.6 G/DL (6.4-8.2); eGFR 65 ML/MIN
[2021-11-03 08:30] LABS: CLARITY,URINE CLEAR (Clear); COLOR,URINE YELLOW (Yellow); GLUCOSE, URINE NEGATIVE (Neg); KETONES,URINE NEGATIVE (Neg); LEUKOCYTE ESTERASE ,URINE NEGATIVE (Neg); NITRITES, URINE NEGATIVE (Neg); OCCULT BLOOD,URINE NEGATIVE (Neg); PH,URINE 6.5 (4.8-8.0); PROTEIN,URINE NEGATIVE (Neg); UROBILINOGEN,URINE 0.2 E.U/dL (0.2-1.0)
[2021-11-03 08:42] LABS: UA COLLECTION TYPE CLN CATCH MIDSTREAM
[2021-11-03] MEDS ORDERED: piperacillin/tazo 3.375gm/50ml 50 ML IV ONE (08:53)
[2021-11-03] MEDS ORDERED: ringers solution, lacted 1,000 ML IV ONE (09:05)
[2021-11-03] MEDS ORDERED: acetaminophen 325mg tablet PO PRN (09:20)
[2021-11-03] MEDS ORDERED: glucagon, human recombinant 1mg kit SUBCUT PRN (09:20)
[2021-11-03] MEDS ORDERED: ondansetron/PF 4mg/2ml inj IV PRN ×2 (09:20→10:40)
[2021-11-03] MEDS ORDERED: magnesium 4gm in 100ml NS 100 ML IV PRN (09:20)
[2021-11-03] MEDS ORDERED: bisacodyl 10mg suppository rectal RC PRN (09:20)
[2021-11-03] MEDS ORDERED: insulin Lispro (HumaLOG) vial - multi-dose SQ SCH (09:20)
[2021-11-03] MEDS ORDERED: potassium Cl 20 mEq SR tablet PO PRN ×2 (09:20)
[2021-11-03] MEDS ORDERED: dextrose ORAL solution 15 GM/59 ML bottle PO PRN ×2 (09:20)
[2021-11-03] MEDS ORDERED: magnesium 2GM in 50ml NS 50 ML IV PRN (09:20)
[2021-11-03] MEDS ORDERED: MESSAGE TO PHARMACY PO ONE (09:20)
[2021-11-03] MEDS ORDERED: morphine 2 MG/ML inj. syringe IV PRN ×3 (09:20→10:40)
[2021-11-03] MEDS ORDERED: dextrose 50%-water 50ml dispensing syringe IV PRN ×2 (09:20)
[2021-11-03] MEDS ORDERED: magnesium Cl slow-release 64mg tablet PO PRN (09:20)
[2021-11-03] MEDS ORDERED: mag hydrox/Alum hydrox/simeth 30ml oral suspension PO PRN (09:20)
[2021-11-03] MEDS ORDERED: potassium CL 10mEq/100ml bag 100 ML IV PRN (09:20)
[2021-11-03] MEDS: normal saline 1000ml 1,000 ML IV SCH ×2 (09:51→21:50)
--- NOTE | 2021-11-03 10:07 | NUR ---
Called OR, gave SBAR report. RN stated that they would be coming to get patient in approx. 10 minutes. Will notify patient.
[2021-11-03] MEDS ORDERED: meperidine/PF 25mg/ml syringe IV PRN ×3 (10:40)
[2021-11-03] MEDS ORDERED: ringers solution, lacted 1,000 ML IV SCH (10:40)
[2021-11-03] MEDS ORDERED: proCHLORperazine 10 MG/2 ml inj IV PRN (10:40)
[2021-11-03] MEDS ORDERED: morphine 4 MG/ML inj SYRINge IV PRN (10:40)
[2021-11-03] MEDS ORDERED: midazolam 1 mg/ML 2ml injection ONE (10:47)
[2021-11-03] MEDS ORDERED: fentaNYL/PF 50MCG/1 ML 2ML syringe ONE ×2 (10:47→11:56)
[2021-11-03] MEDS ORDERED: propofol inj 20 ML IV ONE (10:49)
[2021-11-03] MEDS ORDERED: LIDOcaine 1% 30ml preserv. free vial ONE (11:03)
[2021-11-03] MEDS ORDERED: BUPIVAcaine/PF 2.5 mg/ml (0.25%) 30ml vial ONE (11:03)
[2021-11-03] MEDS ORDERED: rocuronium 10mg/ml inj IV ONE (11:07)
[2021-11-03] MEDS ORDERED: ceFOXitin 1000 MG inj ONE ×2 (11:15)
[2021-11-03] MEDS ORDERED: glycopyrrolate 0.2mg/ml inj ONE (11:48)
[2021-11-03] MEDS ORDERED: neostigmine methylsulfate 1 MG/ML 10ml vial ONE (11:48)
[2021-11-03] MEDS ORDERED: ondansetron/PF 4mg/2ml inj ONE (11:49)
[2021-11-03] MEDS ORDERED: dexamethasone sod phosphate 4mg/ml inj. ONE (11:49)
[2021-11-03] MEDS ORDERED: albuterol 2.5 MG/3 ML nebule NEB PRN (11:55)
[2021-11-03] MEDS ORDERED: HYDROcodone/acetaminophen 5mg/325mg tablet PO PRN (11:55)
--- NOTE | 2021-11-03 12:02 | NUR ---
Received from OR via , accompanied by Anesthesiologist DR BEEBE and report given by Anesthesiolgist. PT PRESENTS WITH 20G RIGHT AC, ABD DRESSING CLEAN DRY AND INTACT, VSS. Addendum: 11/03/21 at 1216 by Jennifer Hargrove RN, RN Amended: Links added.
--- NOTE | 2021-11-03 13:32 | NUR ---
Report called to receiving nurse SANDY BALTAZAR. Transferred via HOPITAL BED WITH 2 PT BAGS AND GLASSES TO ROOM [facility]. BED IN LOW LOCKED POSITION, PT GIVEN CALL LIGHT. Special Issues communicated to receiving nurse. Addendum: 11/03/21 at 1347 by Jennifer Hargrove RN RN Amended: Links added.
[2021-11-03] MEDS ORDERED: ipratropium/albuterol 3ml nebule NEB PRN (14:40)
--- NOTE | 2021-11-03 14:46 | NUR ---
1340 pt arrived to unit with commander internal affairs, ED chart, iv ,iv pump, seds/pump, bags with 1 outfit and shoes, cell phone at bedside. 0 pain at this time, urinal at bedside
[2021-11-03] MEDS: piperacillin/tazo 4.5gm/100ml 100 ML IV SCH (16:09)
[2021-11-03] MEDS: lisinopril 10 MG tablet PO SCH (16:10)
--- NOTE | 2021-11-03 18:44 | NUR ---
Received report from DELANEY Smith.
--- NOTE | 2021-11-03 19:09 | NUR ---
pt removed cuff-declined further post-op vitals Addendum: 11/03/21 at 1910 by Sarah Ortiz RN Amended: Links added.
[2021-11-03] MEDS ORDERED: enoxaparin 40mg/0.4ml syringe SQ SCH (20:00)
[2021-11-03] MEDS: K and/or MAG REPLACEMENT MC SCH (20:00)
[2021-11-03] MEDS ORDERED: insulin glargine (Lantus) pen - multi-dose SQ SCH (21:00)
[2021-11-03] MEDS: docusate sod 100mg capsule PO SCH (21:08)
[2021-11-04] VITALS: BP 134/66
[2021-11-04] MEDS: piperacillin/tazo 4.5gm/100ml 100 ML IV SCH ×2 (00:07→07:57)
[2021-11-04] MEDS: normal saline 1000ml 1,000 ML IV SCH (04:01)
[2021-11-04 06:21] LABS: BASOPHILS % (AUTO) 0.1 % (0-1); EOSINOPHILS % (AUTO) 0 % (0-6); HEMATOCRIT 42.5 % (42.0-52.0); HEMOGLOBIN 14.8 g/dl (14.0-17.9); LYMPHOCYTES # (AUTO) 1.3 X10'3 (1.1-4.8); LYMPHOCYTES % (AUTO) 13.7 % (21-51); MEAN CORPUSCULAR HEMOGLOBIN 30.7 PG (27.0-31.0); MEAN CORPUSCULAR HGB CONC 34.8 g/dL (33.0-36.5); MEAN CORPUSCULAR VOLUME 88.1 FL (78-98); MONOCYTES # (AUTO) 0.7 X10'3 (0-0.9); MONOCYTES % (AUTO) 7.2 % (2-12); NEUTROPHILS # (AUTO) 7.6 X10'3 (1.8-7.7); PLATELET COUNT 208 X10'3 (140-440); RED BLOOD COUNT 4.83 X10'6 (4.70-6.10); RED CELL DISTRIBUTION WIDTH 14.2 % (11.5-14.5); WHITE BLOOD COUNT 9.7 X10'3 (4.5-11.0)
--- NOTE | 2021-11-04 06:25 | NUR ---
Problems reprioritized. Patient report given, questions answered & plan of care reviewed with DELANEY Smith.
[2021-11-04 06:46] LABS: ALANINE AMINOTRANSFERASE 29 U/L (12-78); ALBUMIN 3.1 G/DL (3.4-5.0); ALBUMIN/GLOBULIN RATIO 0.9 (1.1-1.5); ALKALINE PHOSPHATASE 74 IU/L (46-116); ANION GAP 7 (8-16); ASPARTATE AMINO TRANSFERASE 14 U/L (10-37); BILIRUBIN,TOTAL 1.2 MG/DL (0.1-1.0); BLOOD UREA NITROGEN 13 MG/DL (7-18); BUN/CREATININE RATIO 11.1 (5.4-32.0); CHLORIDE 107 MMOL/L (99-107); CREATININE 1.17 MG/DL (0.60-1.10); POTASSIUM 3.5 MMOL/L (3.5-5.1); SODIUM 140 MMOL/L (135-145); TOTAL CARBON DIOXIDE 26.3 MMOL/L (24-32); TOTAL PROTEIN 6.7 G/DL (6.4-8.2); eGFR 61 ML/MIN
[2021-11-04 06:58] LABS: GLUCOSE 137 MG/DL (70-104)
[2021-11-04 07:00] VITALS: BP 143/78
--- NOTE | 2021-11-04 07:39 | NUR ---
Diabetes consult: Pt noted w/ hx of T2DM, A1C 6.7 well controlled and appropriate for age. DM ed not indicated at this time. Addendum: 11/04/21 at [address] Amended: Links added.
[2021-11-04] MEDS: docusate sod 100mg capsule PO SCH (07:58)
[2021-11-04] MEDS: lisinopril 10 MG tablet PO SCH (07:58)
[2021-11-04] MEDS ORDERED: cholecalciferol (vitamin D3) 1,000 unit (25mcg) tablet PO SCH (08:00)
[2021-11-04] MEDS ORDERED: atorvastatin 10mg tablet PO SCH (08:00)
[2021-11-04] MEDS: K and/or MAG REPLACEMENT MC SCH (08:00)
[2021-11-04] MEDS ORDERED: AMOX-580 PO (09:44)
--- NOTE | 2021-11-04 09:49 | NUR ---
spo2 ranging from 89-[address] rosales at bedside. copd pt ok to d/c w/o o2 Addendum: 11/04/21 at 0950 by Sarah Ortiz RN Amended: Links added.
[2021-11-04 11:00] VITALS: BP 169/81
== END 2021-11-04 12:30 | disposition home or self-care (01) | DRG 338 ==
LOC: ER 05:35 → ED HOLD 09:25 → SUR 3N 13:45
PROVIDERS: ADMIT Family Medicine; ATTEND Family Medicine
PROC: 8E0W4CZ Robotic Assisted Procedure of Trunk Region, Percutaneous Endoscopic Approach (ICD-10-PCS; 2021-11-03)
PROC: BW211ZZ Computerized Tomography (CT Scan) of Abdomen and Pelvis using Low Osmolar Contrast (ICD-10-PCS; 2021-11-03)
PROC: 0DTJ4ZZ Resection of Appendix, Percutaneous Endoscopic Approach (ICD-10-PCS; principal; 2021-11-03 10:42)
DX: K35.32 Acute appendicitis with perforation, localized peritonitis, and gangrene, without abscess (principal); J96.00 Acute respiratory failure, unspecified whether with hypoxia or hypercapnia; K86.1 Other chronic pancreatitis; J44.1 Chronic obstructive pulmonary disease with (acute) exacerbation; Z20.822 Contact with and (suspected) exposure to COVID-19; E11.9 Type 2 diabetes mellitus without complications; Z66 Do not resuscitate; I10 Essential (primary) hypertension; E78.5 Hyperlipidemia, unspecified; Z79.84 Long term (current) use of oral hypoglycemic drugs; Z79.899 Other long term (current) drug therapy; Z80.0 Family history of malignant neoplasm of digestive organs; Z80.1 Family history of malignant neoplasm of trachea, bronchus and lung; Z80.42 Family history of malignant neoplasm of prostate; Z83.3 Family history of diabetes mellitus
CPT/HCPCS: 36415; 71045; 74177; 80053; 81003; 82948; 83036; 83690; 83735; 85025; 87040; 87081; 87635; 94760; 96365; 96375; 99285; A4215; A4618; G0378; J0694; J1100; J1650; J1815; J2250; J2270; J2405; J2543; J2704; J2710; J3010; J3490; J7030; J7120; Q9967